=== PATIENT | female | born 1995 | race Two or more races ===

== ENCOUNTER 2018-06-26 03:03 | Outpatient (CLI) | payer OTHER ==
[2018-06-26] MEDS ORDERED: PRENATAL TABLE1 EACH PO (03:47)
== END 2018-06-26 14:35 | disposition home or self-care (01) ==
LOC: OBS/DEL 03:03
DX: O26.893 Other specified pregnancy related conditions, third trimester (principal); M54.5 Low back pain; Z34.03 Encounter for supervision of normal first pregnancy, third trimester

== ENCOUNTER 2018-09-04 10:26 | Inpatient (IN) | payer OTHER ==
[~2018-09-04] VITALS: Ht 157.5 cm; Wt 3.2 kg
[~2018-09-04 10:26] MED LIST: PRENATAL TABLE1 EACH PO
[2018-09-04] MEDS ORDERED: VALTREX1000 MG PO (13:26)
== END 2018-09-07 14:49 | DRG 788 ==
LOC: LDR 10:26 → O/R 09-05 11:23 → OB/GYN 09-05 15:22
PROVIDERS: Obstetrics & Gynecology
PROC: 3E033VJ Introduction of Other Hormone into Peripheral Vein, Percutaneous Approach (ICD-10-PCS; 2018-09-05)
PROC: 4A1HXCZ Monitoring of Products of Conception, Cardiac Rate, External Approach (ICD-10-PCS; 2018-09-05)
PROC: 10D00Z1 Extraction of Products of Conception, Low, Open Approach (ICD-10-PCS; principal; 2018-09-05 07:00)
DX: O61.0 Failed medical induction of labor (principal); Z3A.39 39 weeks gestation of pregnancy; Z37.0 Single live birth; Z22.330 Carrier of Group B streptococcus